=== PATIENT | female | born 1995 | race Caucasian/White ===

== ENCOUNTER 2017-05-04 11:06 | Day surgery (SDC) | payer OTHER ==
[~2017-05-04] VITALS: Ht 170.2 cm; Wt 59.0 kg
[~2017-05-04 11:06] MED LIST: TYLENOL REGULA325 MG PO; VOLTAREN75 MG PO
[2017-05-04 11:28] VITALS: BP 122/79
[2017-05-04 17:20] VITALS: BP 108/68
[2017-05-04 18:19] VITALS: BP 107/55
[2017-05-04 20:04] VITALS: BP 115/64
[2017-05-04 20:54] VITALS: BP 124/59
== END 2017-05-04 21:19 | disposition home or self-care (01) ==
LOC: SDC 11:06
DX: S83.511A Sprain of anterior cruciate ligament of right knee, initial encounter (principal); S83.231A Complex tear of medial meniscus, current injury, right knee, initial encounter; S83.281A Other tear of lateral meniscus, current injury, right knee, initial encounter; X58.XXXA Exposure to other specified factors, initial encounter; Y93.68 Activity, volleyball (beach) (court)
CPT/HCPCS: 73560; 76000; 84702; C1713; J0131; J0690; J1100; J1170; J1885; J2250; J2405; J2765; J2795; J3010; J7120